=== PATIENT | male | born 1985 | race African-American/Black ===

== ENCOUNTER 2019-07-14 09:52 | Emergency (ER) | payer OTHER, MEDICAID, SELFPAY ==
[2019-07-14 10:14] VITALS: BP 131/89; PULSE 94; RESP 20; TEMP 37.3; O2SAT 100
--- NOTE | 2019-07-14 11:21 | ED.GENADULT ---
HPI - General Adult General Chief complaint: Upper Respiratory Infection Stated complaint: fever congestion Time Seen by Provider: 07/14/19 10:35 Source: patient and RN notes reviewed Mode of arrival: ambulatory Limitations: no limitations History of Present Illness HPI narrative: 34-year-old -[place] male presents with complaints of sore throat and tactile fever for 2 days. No treatment. History of Asthma, sleep apnea, and smoker. Tactile fevers without chills. No drooling, neck or throat swelling. Pain is bilateral. Hurts to swallow. Exacerbation factors consist of smoking, eating, and drinking. No rhinorrhea. Nasal congestion. No voice change. No nausea, vomiting, or abdominal pain. Tolerating liquids well. Denies chills, dyspnea, difficulty swallowing, jaw pain, dental pain, facial pain, foreign body sensation, and rash. Remains active. Some parts of this dictation were generated by voice recognition software and may contain typographical and/or grammatical inaccuracies. Related Data Allergies Allergy/AdvReac Type Severity Reaction Status Date / Time No Known Allergies Allergy Verified 07/14/19 10:28 Review of Systems Review of Systems: Narrative: CONSTITUTIONAL: Complains of tactile fever. Denies chills, sweats. EYES: Denies visual changes, redness, discharge. ENT: Denies rhinorrhea, otalgia. Complains of sore throat, congestion. CARDIOVASCULAR: Denies chest pain, palpitations, edema. RESPIRATORY: Denies dyspnea, wheezing, cough. GASTROINTESTINAL: Denies abdominal pain, nausea, vomiting, diarrhea. GENITOURINARY: Denies dysuria, hematuria, abnormal discharge. SKIN: Denies rash or itching. MUSCULOSKELETAL: Denies acute back pain, joint pain, or myalgia. NEUROLOGIC: Denies numbness or focal weakness. PSYCHIATRIC: Denies anxiety or depression. All systems reviewed & are unremarkable except as noted in HPI and below. [facility] Past Medical History Medical History (Updated 07/15/19 @ 00:00 by Gwen Landis) Asthma Childhood Sleep apnea Surgical History Surgical History (Updated 07/14/19 @ 13:10 by KENTON Carmichael) History of tonsillectomy Family History Family History (Updated 07/14/19 @ 13:11 by KENTON Carmichael) Mother Diabetes mellitus Heart disease Social History Social History (Updated 07/14/19 @ 13:11 by CINDY Carmichael Smoking status: Current every day smoker Second hand tobacco smoke exposure: Yes Alcohol intake: never Substance use: never Living arrangements: with family Occupation/Education: occupation Gender identity (if verbalized by the patient): Male Comments At time of signature, agree with nurse past medical, surgical, social, and family history. There is no relevant family history pertinent to the presenting complaint. Exam Narrative: Exam Narrative: GENERAL: This is a well-nourished, well-developed patient, in no apparent distress. Speaks in full sentences without deficits and ambulates with steady gait without dyspnea. HEAD: normocephalic, atraumatic. EYES: PERRL. Sclera clear/white. Vision is grossly intact. EARS: External ears normal, auditory canals clear and without drainage, TMs normal without perforation. Hearing grossly intact. NOSE: External nose normal with no obvious nasal discharge, nares with mild redness and enlarge turbinates, no rhinorrhea. Mouth: moist mucous membranes. THROAT: Mucous membranes moist, posterior pharynx with PND, mild-moderate erythema, and no exudate to tonsil, no tonsils, no drainage. No drooling, trismus, or neck swelling. NECK: Neck supple, non-tender without lymphadenopathy, masses or thyromegaly. CARDIOVASCULAR: Regular rate and rhythm without murmurs, gallops, or rubs. RESPIRATORY: Clear to auscultation. Breath sounds equal bilaterally. No wheezes, rales, or rhonchi. GASTROINTESTINAL: Abdomen soft, non-tender, nondistended. Bowel sounds are active. No hepato-splenomegaly, or palpable masses
== END 2019-07-14 11:30 | disposition home or self-care (01) ==
PROVIDERS: Emergency Provider Nurse Practitioner Family
DX: J02.9 Acute pharyngitis, unspecified (principal); F17.200 Nicotine dependence, unspecified, uncomplicated; G47.30 Sleep apnea, unspecified
CPT/HCPCS: 87081; 87880; 99213; G0463

== ENCOUNTER 2019-10-31 11:21 | Emergency (ER) | payer OTHER, SELFPAY ==
[2019-10-31 11:25] VITALS: BP 139/87; PULSE 87; RESP 20; TEMP 36.8; O2SAT 100
--- NOTE | 2019-10-31 12:08 | ED.SKABFB ---
HPI - Skin/Abscess/Foreign Bdy General Chief complaint: Skin/Abscess/Foreign Body Stated complaint: tick bite Time Seen by Provider: 10/31/19 12:03 Source: patient and RN notes reviewed Mode of arrival: ambulatory Limitations: no limitations History of Present Illness HPI narrative: Patient presents today complaining of Redness and swelling to the left chest. He was bit by a tick 2 days ago on the left nipple. He is unsure how long the tick was in his skin. After removal, he cleaned the area with alcohol.At the time that he noted the tick, his chest was already red. Denies much pain. Denies drainage. MD complaint: insect bite/sting and discoloration Related Data Allergies Allergy/AdvReac Type Severity Reaction Status Date / Time No Known Allergies Allergy Verified 10/31/19 11:39 Review of Systems Review of Systems: Narrative: CONSTITUTIONAL: Denies body aches, fever, chills, or sweats. EYES: Denies visual changes, redness, or discharge. ENT: Denies rhinorrhea, congestion, sore throat, or otalgia. CARDIOVASCULAR: Denies chest pain, palpitations, or edema. RESPIRATORY: Denies cough or dyspnea. GASTROINTESTINAL: Denies abdominal pain, nausea, vomiting, or diarrhea. GENITOURINARY: Denies dysuria or hematuria. SKIN: +Redness and tick bite to the left chest MUSCULOSKELETAL: Denies back pain, joint pain, or myalgia. NEUROLOGIC: Denies headache, numbness, tingling, or weakness. PSYCH: Denies depression or anxiety. [facility] Past Medical History Medical History (Updated 10/31/19 @ 12:10 by Radha Carmen, [employer], ) Asthma Childhood Sleep apnea Surgical History Surgical History (Updated 07/14/19 @ 13:10 by KENTON Carmichael) History of tonsillectomy Family History Family History (Updated 07/14/19 @ 13:11 by KENTON Carmichael) Mother Diabetes mellitus Heart disease Social History Social History (Updated 07/14/19 @ 13:11 by KENTON Carmichael) Smoking status: Current every day smoker Second hand tobacco smoke exposure: Yes Alcohol intake: never Substance use: never Gender identity (if verbalized by the patient): Male Comments At time of signature, I have reviewed and agree with nursing past medical, surgical, social and family history unless otherwise noted. Please see nursing chart for further information. There is no relevant family history pertinent to the presenting complaint Exam Narrative: Exam Narrative: GENERAL: Well-appearing, well-nourished, and in no acute distress. HEAD: Normocephalic, atraumatic. EYES: EOMI. No redness or drainage. Conjunctivae normal. ENT: Mucous membranes pink and moist. NECK: Normal AROM. CHEST: No respiratory distress. EXTREMITIES: Normal range of motion. No edema. SKIN: Warm, dry. ~6cm round area of erythema surrounding the nipple. No induration or fluctuance noted. Punctate scab to 12 oclock position of the areola. Capillary refill normal. Normal skin turgor. NEURO: No focal deficits. Alert and oriented x3. Gait steady. PSYCH: Normal affect. No signs of depression or anxiety. Course Vital Signs Vital signs: Vital Signs Temperature 98.3 F 10/31/19 11:25 Pulse Rate 87 10/31/19 11:25 Respiratory Rate 10/31/19 11:25 Blood Pressure 139/87 10/31/19 11:25 Pulse Oximetry 100 10/31/19 11:25 Temperature 98.3 F 10/31/19 11:25 Pulse Rate 87 10/31/19 11:25 Respiratory Rate 10/31/19 11:25 Blood Pressure 139/87 10/31/19 11:25 Pulse Oximetry 100 10/31/19 11:25 Reviewed. Pt has been instructed to follow up with his PCP regarding his elevated blood pressure today. MDM - Skin/Abscess/Foreign Bdy Differential Diagnosis Differential diagnosis: Likely abscess of skin or subcutaneous tissue, urticaria, cellulitis, insect bites, impetigo and contact dermatitis Critical Care Time Critical Care Time Critical Care Time: No Discharge Plan Discharge Clinical Impression: Cellulitis Qualifiers: S
== END 2019-10-31 12:25 | disposition home or self-care (01) ==
PROVIDERS: Emergency Provider Nurse Practitioner
DX: L03.313 Cellulitis of chest wall (principal); W57.XXXA Bitten or stung by nonvenomous insect and other nonvenomous arthropods, initial encounter; F17.210 Nicotine dependence, cigarettes, uncomplicated
CPT/HCPCS: 99213; G0463